=== PATIENT | female | born 2000 | race Two or more races ===

== ENCOUNTER 2022-07-29 23:14 | Emergency (ER) | payer OTHER ==
[~2022-07-29] VITALS: Ht 152.4 cm; Wt 50.8 kg
[2022-07-30] MEDS ORDERED: CEPHALEXIN500 MG PO (05:10)
== END 2022-07-30 05:21 ==
LOC: ER 23:14
DX: O20.0 Threatened abortion (principal); Z3A.00 Weeks of gestation of pregnancy not specified; R50.9 Fever, unspecified; R10.2 Pelvic and perineal pain; R53.81 Other malaise